=== PATIENT | female | born 1935 | race Native Hawaiian/Other Pacific Islander ===

== ENCOUNTER 2018-04-07 11:25 | Emergency (ER) | payer OTHER ==
[~2018-04-07] VITALS: Ht 167.6 cm; Wt 70.8 kg
[~2018-04-07 11:25] MED LIST: DIVA125C PO; DIVA250T2 PO; DONE5TAB PO; LISI10TA11 PO; LISI20TA11 PO; LORA0.5T17 PO; MEMA10TA2 PO; MEMANTINE HCL10 MG PO; OLANZAPINE10 M2 PO; OMEPRAZOLE20 MG PO; RISP1TAB PO; RISP2TAB2 PO; [UNRECOGNIZED DRUG - OTHER] PO; [UNRECOGNIZED DRUG - OTHER] PO
[2018-04-07 12:08] LABS: PLATELET COUNT 216 K/uL (152-353)
[2018-04-07 12:17] LABS: POTASSIUM 3.9 mmol/L (3.6-5.2)
[2018-04-07 14:00] VITALS: BP 170/83; TEMP 97.9
[2018-04-07] MEDS ORDERED: CYAN10009 IM (16:35)
[2018-04-07] MEDS ORDERED: RISPERDAL12.5 MG IM (16:37)
[2018-04-07] MEDS ORDERED: DIVALPROEX250 M1 PO (16:39)
[2018-04-07] MEDS ORDERED: ALUM-67 PO (16:40)
[2018-04-07] MEDS ORDERED: TYLENOL325 MG PO (16:41)
== END 2018-04-07 14:00 | disposition other institution (70) ==
LOC: ED 11:25
PROVIDERS: Internal Medicine
DX: F20.0 Paranoid schizophrenia (principal); I10 Essential (primary) hypertension; R00.1 Bradycardia, unspecified; Z04.6 Encounter for general psychiatric examination, requested by authority
CPT/HCPCS: 36415; 80053; 82150; 85027; 93005; 99285